=== PATIENT | female | born 1955 | race Hispanic/Latino ===

== ENCOUNTER 2023-09-18 09:21 | Outpatient (CLI) | payer OTHER | END 2023-09-18 09:22 | disposition home or self-care (01) | LOC: CSHCT 09:21 | PROVIDERS: ATTEND Family Medicine | DX: G44.059 Short lasting unilateral neuralgiform headache with conjunctival injection and tearing (SUNCT), not intractable (principal); R29.898 Other symptoms and signs involving the musculoskeletal system | CPT/HCPCS: 70470; 82565 ==